=== PATIENT | female | born 2005 | race Hispanic/Latino ===

== ENCOUNTER 2024-09-30 10:44 | Outpatient (CLI) | payer BC | END 2024-09-30 10:45 | disposition home or self-care (01) | LOC: ULT 10:44 | PROVIDERS: ATTEND Internal Medicine Gastroenterology | DX: R63.5 Abnormal weight gain (principal); R14.0 Abdominal distension (gaseous); K76.89 Other specified diseases of liver | CPT/HCPCS: 76700 ==

== ENCOUNTER 2024-10-07 07:47 | Outpatient (CLI) | payer BC | END 2024-10-07 07:48 | disposition home or self-care (01) | LOC: CT 07:47 | PROVIDERS: ATTEND Internal Medicine Gastroenterology | DX: R93.5 Abnormal findings on diagnostic imaging of other abdominal regions, including retroperitoneum (principal); K76.0 Fatty (change of) liver, not elsewhere classified | CPT/HCPCS: 74160 ==